=== PATIENT | male | born 2000 | race Caucasian/White ===

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

== ENCOUNTER 2019-11-20 21:47 | Emergency (ER) | payer MEDICAID, OTHER ==
--- NOTE | 2019-11-20 22:36 | ED Physician Documentation ---
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 He has been lifting a lot of bags of concrete and doing work with hand tools. He had noted onset of some right parasternal pain with lifting and bending over. This worsened abruptly today as he leaned forward and he felt a pop on the right parasternal area. He feels that there is some abnormality to palpation in that area and thinks he may have dislocated a rib. He has not had any cold cough or flu symptoms. He d enies any direct impact or injury.) Timing - details: Gradual onset Quality: Aching, Sharp, Pain Location: Right chest (at sternal border) Radiation: Back. No: Jaw, Neck, Abdominal Improved by: Rest Worsened by: Exertion, Movement. No: Eating, Palpation Associated symptoms: Shortness of air. No: Diaphoresis, Nausea, Vomiting, Feeling faint / dizzy, Palpitations, Cough Similar symptoms before: Has not had sx before Recently seen: Not recently seen Review of Systems Constitutional: denies: Fever, Chills, Myalgias Nose: denies: Rhinorrhea / runny nose, Congestion Throat: denies: Sore throat Cardiac: reports: Chest pain / pressure. denies: Palpitations, Pedal edema, Calf pain Respiratory: denies: Dyspnea, Cough, Wheezing GI: denies: Abdominal Pain, Nausea, Vomiting, Diarrhea Musculoskeletal: denies: Extremity swelling Neurologic: denies: Near syncope PD PAST MEDICAL HISTORY - Past Medical History Past Medical History: Yes Cardiovascular: None Respiratory: Asthma, Sleep apnea Neuro: None Endocrine/Autoimmune: None GI: None : None HEENT: None Psych: Depression, Anxiety Musculoskeletal: None Derm: None - Past Surgical History Past Surgical History: Yes General: Appendectomy Ortho: Other HEENT: Tonsil/Adenoidectomy - Present Medications Home Medications: Ambulatory Orders Medication Instructions Recorded Confirmed HYDROcod/ACETAM 5/325 [[place] 5/325] 1 tab PO Q6H PRN #15 tablet 06/07/17 Promethazine [Phenergan] 25 mg PO Q6H PRN #30 tab 06/07/17 Rizatriptan Benzoate [Rizatriptan] 5 mg PO DAILY PRN 06/07/17 06/07/17 Rizatriptan Benzoate [Rizatriptan] 10 mg PO ONCE PRN #9 tablet 06/07/17 Hydrocodone/Acetaminophen [[place] 1 each PO Q6H PRN #15 tablet 11/21/19 5-325 Tablet] Naproxen 500 mg PO BID #20 tablet 11/21/19 dexAMETHasone [Decadron] 4 mg PO DAILY #5 tablet 11/21/19 - Allergies Allergies/Adverse Reactions: Allergies Allergy/AdvReac Type Severity Reaction Status Date / Time No Known Drug Allergies Allergy Verified 11/20/19 21:55 - Social History Does the pt smoke?: Yes Smoking Status: Current every day smoker Does the pt drink ETOH?: No Does the pt have substance abuse?: No - Immunizations Immunizations are current?: Yes - POLST Patient has POLST: No PD ED PE NORMAL - Vitals Vital signs reviewed: Yes - General General: Alert and oriented X 3, No acute distress, Well developed/nourished - HEENT HEENT: Pharynx benign - Neck Neck: Supple, no meningeal sign, No adenopathy - Cardiac Cardiac: RRR, No murmur - Respiratory Respiratory: No respiratory distress, Clear bilaterally, Other (there is some focal chest wall tenderness right sternal border in cartilage, without rash/redness nor sores. There may be mild swelling at 5th rib cartilage.) - Abdomen Abdomen: Soft, Non tender Results - Vitals Vitals: Vital Signs - 24 hr 11/20/19 11/20/19 11/21/19 21:52 23:54 00:01 Temperature 36.8 C Heart Rate 68 60 Respiratory 17 16 17 Rate Blood Pressure 154/78 H 137/77 H O2 Saturation 99 98 Oxygen O2 Source Room air - EKG (time done) 21:57 Rate: Rate (enter#) (69) Rhythm: NSR Spring: Normal Intervals: Normal RI QRS: Normal Ischemia: Normal ST segments. No: ST elevation c/w ischemia, ST depression - Rads (name of study) chest xray Radiology: Prelim report reviewed (normal chest radiograph), See rad report PD MEDICAL DECISION MAKING - ED course Complexity details: reviewed results, considered differential (Seems costochondritis likely from a lot of heavy lifting and work of the pectoral and chest muscles. He has not had any cold or cough symptoms. The pop feeling with increased pain today does not represent a pneumothorax or acute lung abnormality based on chest x-ray. We can treated with anti-inflammatories. I also suggested to him alternate treatments like chiropractic.), d/w patient Departure - Departure Disposition: 01 Home, Self Care Clinical Impression: Costochondral chest pain Condition: Stable Record reviewed to determine appropriate education?: Yes Instructions: ED Chest Pain Costochondritis Follow-Up: [facility] [Provider Group] Prescriptions: dexAMETHasone [Decadron] 4 mg PO DAILY #5 tablet Hydrocodone/Acetaminophen [[place] 5-325 Tablet] 1 each PO Q6H PRN #15 tablet PRN Reason: Pain Naproxen 500 mg PO BID #20 tablet Comments: Your chest x-ray appears normal so no obvious lung problem relating to the pain. It does sound likely to be some inflammation in the cartilage at the junction of the rib and the sternum. We can treat this with anti-inflammatories of both naproxen and dexamethasone and add to that Tylenol or hydrocodone as needed for pains. Reduced activity as needed for comfort with less heavy lifting and upper body use as the pectoral muscles do insert in that area as well. Recheck if not improved well over the next several days to week. Discharge Date/Time: 11/21/19 00:11
[2019-11-20] MEDS ORDERED: IBUPROFEN 600 MG TABLET PO STA (22:50)
[2019-11-20] MEDS ORDERED: CHERRY SYRUP 10 ML UDC PO ONE (22:51)
[2019-11-20] MEDS ORDERED: ACETAMINOPHEN 325 MG TABLET PO STA (22:51)
[2019-11-20] MEDS ORDERED: DEXAMETHASONE 10 MG/ML VIAL PO STA (22:51)
--- NOTE | 2019-11-20 23:42 | XRAY Report ---
Reason: sternal/right chest area pain Procedure Date: 11/20/2019 Accession Number: [id number] / [id number] Procedure: XR - Chest 2 View X-Ray CPT Code: 34696 Final Report FULL RESULT: EXAM: CHEST RADIOGRAPHY EXAM DATE: 11/20/2019 11:14 PM. CLINICAL HISTORY: Sternal/right chest area pain. COMPARISON: CHEST 2 VIEW 08/06/2017 6:12 PM. TECHNIQUE: 2 views. FINDINGS: Lungs/Pleura: No focal opacities evident. No pleural effusion. No pneumothorax. Normal volumes. Mediastinum: Heart and mediastinal contours are unremarkable. Other: None. IMPRESSION: Normal 2-view chest radiography. [facility]
[2019-11-21 00:01] VITALS: BP 137/77
== END 2019-11-21 00:11 | disposition home or self-care (01) ==
LOC: ED 21:47
DX: M94.0 Chondrocostal junction syndrome [Tietze] (principal); F17.200 Nicotine dependence, unspecified, uncomplicated
CPT/HCPCS: 71046; 93005; 99284; A9270

== ENCOUNTER 2020-08-15 14:34 | Emergency (ER) | payer MEDICAID, OTHER ==
[2020-08-15 14:43] VITALS: BP 156/75
--- NOTE | 2020-08-15 14:51 | ED Physician Documentation ---
History of Present Illness - Stated complaint Stated Complaint: STITCHES REMOVED - Chief complaint Chief Complaint: Laceration - History obtained from History obtained from: Patient - History of Present Illness Timing: Today Pain level max: 0 Pain level now: 0 - Additonal information Additional information: 20-year-old male presents to the emergency department with a left thumb injury that occurred approximately 10 days ago. Stitches to the left thumb. Here to have the sutures removed. They were placed at [facility]. No complications. No redness, swelling, drainage, pain, fever Review of Systems Constitutional: denies: Fever, Chills PD PAST MEDICAL HISTORY - Past Medical History Cardiovascular: None Respiratory: Sleep apnea Neuro: None Endocrine/Autoimmune: None GI: None : None HEENT: None Psych: Depression, Anxiety Musculoskeletal: None Derm: None - Past Surgical History Past Surgical History: Yes General: Appendectomy Ortho: Other HEENT: Tonsil/Adenoidectomy - Present Medications Home Medications: Ambulatory Orders Medication Instructions Recorded Confirmed HYDROcod/ACETAM 5/325 [[place] 5/325] 1 tab PO Q6H PRN #15 tablet 06/07/17 Promethazine [Phenergan] 25 mg PO Q6H PRN #30 tab 06/07/17 Rizatriptan Benzoate [Rizatriptan] 5 mg PO DAILY PRN 06/07/17 06/07/17 Rizatriptan Benzoate [Rizatriptan] 10 mg PO ONCE PRN #9 tablet 06/07/17 Hydrocodone/Acetaminophen [[place] 1 each PO Q6H PRN #15 tablet 11/21/19 5-325 Tablet] Naproxen 500 mg PO BID #20 tablet 11/21/19 dexAMETHasone [Decadron] 4 mg PO DAILY #5 tablet 11/21/19 - Allergies Allergies/Adverse Reactions: Allergies Allergy/AdvReac Type Severity Reaction Status Date / Time No Known Drug Allergies Allergy Verified 08/15/20 14:43 - Social History Does the pt smoke?: No Smoking Status: Never smoker Does the pt drink ETOH?: No Does the pt have substance abuse?: No - Immunizations Immunizations are current?: Yes - POLST Patient has POLST: No PD ED PE NORMAL - Vitals Vital signs reviewed: Yes - General General: Alert and oriented X 3, No acute distress - Derm Derm: Warm and dry - Extremities Extremities: Other (Well-healed laceration to the base of the MCP joint of the left thumb. Palmar aspect. Neurovascularly intact) - Neuro Neuro: Alert and oriented X 3 Results - Vitals Vitals: Vital Signs - 24 hr 08/15/20 14:41 Temperature 36.9 C Heart Rate 86 Respiratory 18 Rate Blood Pressure 156/75 H O2 Saturation 99 Oxygen O2 Source Room air PD MEDICAL DECISION MAKING - ED course Complexity details: considered differential, d/w patient ED course: Sutures were removed by nursing staff. Tolerated well. No signs of infection. This document was made in part using voice recognition software. While efforts are made to proofread this document, sound alike and grammatical errors may occur. Departure - Departure Disposition: 01 Home, Self Care Clinical Impression: Visit for suture removal Condition: Good Instructions: ED Wound Check Sutr Remove No Infec Follow-Up: your,doctor as needed [Other] Comments: Your stitches did not show any signs of infection today. Follow-up with your doctor as needed for further care. Your stitches were removed. Discharge Date/Time: 08/15/20 14:54
== END 2020-08-15 14:54 | disposition home or self-care (01) ==
LOC: ED 14:34
DX: S61.012D Laceration without foreign body of left thumb without damage to nail, subsequent encounter (principal); X58.XXXD Exposure to other specified factors, subsequent encounter
CPT/HCPCS: 99281; 99282

== ENCOUNTER 2020-12-28 08:00 | Outpatient (CLI) | payer MEDICAID ==
[2020-12-28 18:23] LABS: BASOPHILS % (AUTO) 0.6 %; EOSINOPHILS # (AUTO) 0.3 10^3/uL (0.0-0.7); EOSINOPHILS % (AUTO) 4.6 %; HCT - HEMATOCRIT 44.5 % (42.0-52.0); HGB - HEMOGLOBIN 15.4 g/dL (14.0-18.0); LYMPHOCYTES # (AUTO) 2.1 10^3/uL (1.5-3.5); LYMPHOCYTES % (AUTO) 31.3 %; MEAN CORPUSCULAR HEMOGLOBIN 33.4 pg (27.0-31.0); MEAN CORPUSCULAR HGB CONC 34.6 g/dL (32.0-36.0); MEAN CORPUSCULAR VOLUME 96.5 fL (80.0-94.0); MEAN PLATELET VOLUME 11.6 fL (7.4-11.4); MONOCYTES # (AUTO) 0.7 10^3/uL (0.0-1.0); MONOCYTES % (AUTO) 9.7 %; NEUTROPHILS # (AUTO) 3.7 10^3/uL (1.5-6.6); NEUTROPHILS % (AUTO) 53.5 %; PLT - PLATELET COUNT 220 10^3/uL (130-450); RED BLOOD COUNT 4.61 10^6/uL (4.70-6.10); RED CELL DISTRIBUTION WIDTH 12.3 % (12.0-15.0); WHITE BLOOD COUNT 6.8 x10^3/uL (4.8-10.8)
[2020-12-28 18:51] LABS: ALBUMIN 4.6 g/dL (3.2-5.5); ALBUMIN/GLOBULIN RATIO 1.8 (1.0-2.2); ALKALINE PHOSPHATASE 56 IU/L (42-121); ALT ALANINE AMINOTRANSFERASE 17 IU/L (10-60); AST ASPARTATE AMINOTRANSFERASE 17 IU/L (10-42); BILIRUBIN,TOTAL 0.9 mg/dL (0.2-1.0); BUN - BLOOD UREA NITROGEN 11 mg/dL (6-20); CALCIUM 9.1 mg/dL (8.5-10.3); CARBON DIOXIDE - CO2 28 mmol/L (21-32); CHLORIDE 105 mmol/L (101-111); CHOL/HDL RATIO 2.1 (<5.0); CHOLESTEROL 96 mg/dL; CREATININE 0.9 mg/dL (0.6-1.2); GFR - MDRD 107 (>89); GLUCOSE 87 mg/dL (70-100); HDL CHOLESTEROL 45 mg/dL; LDL CHOLESTEROL,CALCULATED 32 mg/dL; LDL/HDL RATIO 0.7 (<3.6); POTASSIUM 3.9 mmol/L (3.5-5.0); SODIUM 143 mmol/L (135-145); TOTAL PROTEIN 7.1 g/dL (6.7-8.2); TRIGLYCERIDES 95 mg/dL; VLDL CHOLESTEROL 19 mg/dL
[2020-12-28 19:03] LABS: THYROID STIMULATING HORMONE 1.69 uIU/mL (0.34-5.60)
== END 2020-12-28 23:59 | disposition home or self-care (01) ==
LOC: LAB.WCP 08:00
PROVIDERS: ATTEND Nurse Practitioner Family
DX: Z79.899 Other long term (current) drug therapy (principal)
CPT/HCPCS: 36415; 80050; 80061; 83721

== ENCOUNTER 2021-10-24 08:00 | Outpatient (CLI) | payer BC, MEDICAID ==
[2021-10-25 00:11] LABS: CHLAMYDIA TRACHOMATIS DNA NEGATIVE (NEGATIVE); NEISSERIA GONORRHOEAE DNA NEGATIVE (NEGATIVE)
[2021-10-26 11:38] LABS: HEPATITIS C ANTIBODY NON-REACTIVE (NON-REACTIVE)
[2021-10-26 13:12] LABS: HIV AG/AB 4TH GEN NON-REACTIVE (NON-REACTIVE)
[2021-10-27 14:11] LABS: HSV 1 IGG TYPE SPECIFIC AB <0.90 index; HSV 2 IGG TYPE SPECIFIC AB <0.90 index
== END 2021-10-24 08:01 | disposition home or self-care (01) ==
LOC: LAB.N 08:00
PROVIDERS: ATTEND Family Medicine
DX: Z20.2 Contact with and (suspected) exposure to infections with a predominantly sexual mode of transmission (principal)
CPT/HCPCS: 36415; 81599; 86592; 86695; 86696; 86803; 87389; 87491; 87591; 87661